=== PATIENT | male | born 1965 | race Caucasian/White ===

== ENCOUNTER 2024-07-18 05:58 | Emergency (ER) | payer BC, SELFPAY ==
[2024-07-18 06:16] VITALS: BP 150/83
[2024-07-18] MEDS: DECADRON 10 MG PO (07:32)
[2024-07-18] MEDS: DUONEB 3 ML INH (07:32)
[2024-07-18 07:58] LABS: COVID-19 Antigen Negative (Negative)
--- NOTE | 2024-07-18 08:17 | ED.GENMED ---
History of Present Illness
General
Chief Complaint: Breathing Problem
Source: patient
Exam Limitations: none
Time Seen by Provider: 07/18/24 07:05
Nursing documentation reviewed up to this point in time: agreed with
History of Present Illness
History of Present Illness:
59-year-old male presenting to the emergency department today with concerns of ongoing wheezing. Patient initially treated with an inhaler cough medication 2 days ago but ongoing wheezing today. Seeking additional treatment today. Denies chest
pain denies fever
Past History
Social History
Personal:
Living: with family
Employment: Employed
Review of Systems
Review of Systems
Allergies reviewed?: Yes
All Other Systems: ROS reviewed and negative except as documented in HPI and ROS
Phy Exam
Physical Exam
Physical Exam:
GENERAL: Alert , in no apparent distress
EYE: pupils equal and reactive
NECK: Supple, no significant adenopathy.
ENT: o/p clr, mmm.
CARDIAC: Regular rate and rhythm .
LUNGS: Diffuse expiratory wheezing
ABDOMEN: Soft, without focal tenderness, no r/g, no cvat
NEUROLOGICAL: Alert and oriented, no focal neuro deficits
SKIN: Warm and dry, skin intact.
MUSCULOSKELETAL: No edema, well perfused.
PSYCH: Normal and appropriate interaction.
Scores
Heart Failure Risk
Heart Failure Risk Score: Not Applicable
Course
Orders/Labs/Results
Orders:
Orders
07/18/24 06:24
Chest [CR Chest - 2 Views ] Urgent
Comment:
Reason For Exam: cough
07/18/24 07:13
Dexamethasone [Decadron] 10 mg PO NOW STA
Ipratropium/Albuterol Sulfate [Duoneb] 3 ml INH R NOW ONE
07/18/24 07:37
COVID-19 Antigen Urgent
Source: Nasal Swab
Influenza A+B Rapid Molecular Urgent
[facility] Source: Nasal Swab
Specimen Description:
Vital Signs
Initial and Last Documented VS:
Initial Vital Signs
Temp Pulse Resp BP Pulse Ox
97.9 F 74 20 150/83 96
07/18/24 06:16 07/18/24 06:16 07/18/24 06:16 07/18/24 06:16 07/18/24 06:16
Last Documented Vital Signs
Temp Pulse Resp BP Pulse Ox
97.9 F 74 20 150/83 96
07/18/24 06:16 07/18/24 06:16 07/18/24 06:16 07/18/24 06:16 07/18/24 06:16
MDM/Problems Addressed
MDM/Problems Addressed:
59-year-old male presenting to the emergency department today with concerns of upper respiratory symptoms over the past 2 days. Worsening wheezing today. On arrival he does diffuse expiratory wheezing. Pulse ox in the mid 90s otherwise vital
signs are normal. Plan to start steroids as well as breathing treatment.
*Critical Care Note
Total Time (30-74mins, 75-104mins- exclusive of procedures): Not Applicable
ED Attending Note
-
Portions of this chart may have been created with voice recognition software.� Occasional wrong word or��sound alike� substitutions may have occurred due to the inherent limitations of voice recognition software.
Discharge Plan
Departure
Patient Disposition: Home (Routine Discharge)
Date of Disposition: 07/18/24
Time of Disposition: 10:22
Patient with high blood pressure during this ER visit?: No
Condition: Good
Covid-19: Not Applicable
Discharge Problem:
Influenza, Wheeze
Instructions: Asthma, Adult (DC)
Prescriptions:
New
prednisone 50 mg tablet
50 mg PO DAILY 4 Days Qty: 4 0RF
Referrals:
Jared Shields DO [Family Provider] -
Activity Restrictions/Additional Instructions:
You came to the emergency department today with concerns of wheeze. Here you had a reassuring assessment you were positive for the flu which will get better over time. The wheezing should be improving now that you are on a steroid. Please take 50
mg once daily over the next 4 days and follow-up close with the primary care doctor within 1 week for reassessment. Please use your albuterol inhaler as needed. Return for any worsening, new or concerning symptoms.
Interventions
Interventions:
*Risk Screen - Suicide Last Done: 07/18/24 06:16
*General Assessment Last Done: 07/18/24 06:16
*Neglect/Abuse Screening Last Done: 07/18/24 06:16
ED- Fall Risk Assessment Last Done: 07/18/24 06:16
*ED COVID-19 Vaccine History Last Done: 07/18/24 06:16
Discharge Date and Time
Print Language: UKRAINIAN
[2024-07-18 10:00] VITALS: BP 148/71
== END 2024-07-18 10:37 | disposition home or self-care (01) ==
LOC: EMR 05:58
PROVIDERS: Student in an Organized Health Care Education/Training Program; EMERGENCY PHYSICIAN Student in an Organized Health Care Education/Training Program; FAMILY PHYSICIAN Family Medicine
DX: J10.1 Influenza due to other identified influenza virus with other respiratory manifestations (principal); J45.909 Unspecified asthma, uncomplicated
CPT/HCPCS: 94640; 99284; 71046; 87502; 87811